=== PATIENT | female | born 1995 | race African-American/Black ===

== ENCOUNTER 2018-02-06 15:02 | Emergency (ER) | payer BC ==
[~2018-02-06] VITALS: Ht 172.7 cm; Wt 119.0 kg
[2018-02-06 15:20] VITALS: BP 162/98; PULSE 95; RESP 16; TEMP 98.3; O2SAT 100
[2018-02-06] MEDS ORDERED: METR-1 PO (16:06)
[2018-02-06] MEDS ORDERED: metroNIDAZOLE 500 MG TAB PO ONE (16:15)
--- NOTE | 2018-02-06 16:32 | PD ---
HPI Chief Complaint: Wound/Suture/Staple Re-Check Time Seen by Provider: 15:23 Travel History International Travel<30 days: No Contact w/Intl Traveler<30days: No Traveled to known affect area: No History of Present Illness HPI 22-year-old female that presents to the ED for evaluation of possible STD exposure. Per patient she cannot recall from one of her partners that she no longer interacts with that apparently was positive for Trichomonas and was told to get evaluated for it. She states that this was a female partner. She denies having this before. She denies any symptoms herself. No positive . No urinary or bowel movement issues. The patient she denies any discharge or bleeding. No abdominal pain. She denies any history of STD in the past. Mainly she is concerned about the infection. PFSH Past Medical History Tetanus Vaccination: < 5 Years Influenza Vaccination: No ?: Not LMP: not sure, about 2 weeks ago Social History Alcohol Use: Yes (occ) Tobacco Use: Yes (3 cigs) Allergies-Medications (Allergen,Severity, Reaction): Coded Allergies: No Known Allergies (Unverified Adverse Reaction, Unknown, 02/06/18) Reported Meds & Prescriptions Reported Meds & Active Scripts Active Flagyl (Metronidazole) 500 Mg Tab 500 Mg PO BID 7 Days Review of Systems Except as stated in HPI: all other systems reviewed are Neg Physical Exam Narrative GENERAL: SKIN: Warm and dry. HEAD: Atraumatic. Normocephalic. EYES: Pupils equal and round. No scleral icterus. No injection or drainage. ENT: No nasal bleeding or discharge. Mucous membranes pink and moist. NECK: Trachea midline. No JVD. CARDIOVASCULAR: Regular rate and rhythm. RESPIRATORY: No accessory muscle use. Clear to auscultation. Breath sounds equal bilaterally. GASTROINTESTINAL: Abdomen soft, non-tender, nondistended. Hepatic and splenic margins not palpable. Pelvic exam: Done with female nurse present. Patient does have whitish discharge coming from the cervix. Smelly. No other abnormality noted. No adnexal tenderness. MUSCULOSKELETAL: Extremities without clubbing, cyanosis, or edema. No obvious deformities. NEUROLOGICAL: Awake and alert. No obvious cranial nerve deficits. Motor grossly within normal limits. Five out of 5 muscle strength in the arms and legs. Normal speech. PSYCHIATRIC: Appropriate mood and affect; insight and judgment normal. Data Data Last Documented VS Vital Signs Date Time Temp Pulse Resp B/P (MAP) Pulse Ox O2 Delivery O2 Flow Rate FiO2 02/06/18 15:20 98.3 95 16 162/98 (119) 100 Orders Orders Gc And Chlamydia Pcr (02/06/18 15:42) Wet Prep Profile (02/06/18 15:42) Metronidazole (Flagyl) (02/06/18 16:15) Ed Discharge Order (02/06/18 16:28) Labs Laboratory Tests Test 02/06/18 15:50 Clue Cells (Wet Prep) PRESENT Vaginal Trichomonas (Wet Prep) NONE SEEN Vaginal Yeast (Wet Prep) NONE SEEN MDM Medical Decision Making Medical Screen Exam Complete: Yes Emergency Medical Condition: Yes Medical Record Reviewed: Yes Interpretation(s) wet prep positive for BV Differential Diagnosis Trichomonas versus bacterial vaginosis versus STD Narrative Course 22-year-old female that presents to the ED for evaluation of possible STD exposure. Patient was properly examined and was found to have signs and symptoms consistent appears to be STD exposure. Patient wanted to be tested for it. She agreed to do pelvic exam. Pelvic exam reveals some discharge. Upper was actually negative for Trichomonas which she can positive for bacterial vaginosis. Patient will be treated with Flagyl which should cover for both if this was a false negative. Patient understands and agrees. I did order tests for gonorrhea and chlamydia and should come back in the next 24 hours. Patient was told that this comes positive she will get a call to come back to get treated. Otherwise she is to follow with health department. See ED for worsening symptoms. Follow with PCP. Diagnosis Primary Impression: BV (bacterial vaginosis) Additional Impression: Exposure to trichomonas Patient Instructions: General Instructions Additional Instructions: Take medication as prescribed. Follow-up with PCP. No sex for 2 weeks. See ED for worsening symptoms. Med/Other Pt SpecificInfo: Prescription(s) given Scripts Metronidazole (Flagyl) 500 Mg Tab 500 MG PO BID for Infection for 7 Days, #14 TAB 0 Refills Prov: Eros Lozano MD 02/06/18 Disposition: 01 DISCHARGE HOME Condition: Stable Bill Betts Feb 06, 2018 16:32
== END 2018-02-06 17:21 | disposition home or self-care (01) ==
LOC: PHEFT 15:02
DX: N76.0 Acute vaginitis (principal); Z20.2 Contact with and (suspected) exposure to infections with a predominantly sexual mode of transmission
CPT/HCPCS: 87210; 87491; 87591; 99284